=== PATIENT | female | born 1975 | race Caucasian/White ===

== ENCOUNTER 2019-12-27 14:38 | Emergency (ER) | payer OTHER ==
[~2019-12-27] VITALS: Ht 165.1 cm; Wt 90.7 kg
[~2019-12-27 14:38] MED LIST: NORCO 5-325 TA1 EACH PO; PREVACID15 MG
[2019-12-27] MEDS ORDERED: WELLBUTRIN SR150 MG PO (14:59)
[2019-12-27] MEDS ORDERED: SUPER THERAVIT1 EACH PO (15:00)
[2019-12-27 15:26] LABS: ABSOLUTE BASOPHILS 0.1 thou/uL (0.0-0.2); ABSOLUTE EOSINOPHILS 0.2 thou/uL (0.0-0.7); ABSOLUTE MONOCYTES 0.7 thou/uL (0.0-1.2); ABSOLUTE NEUTROPHILS 4.9 thou/uL (1.6-8.1); BASOPHILS 1.1 %; EOSINOPHILS 2.7 %; HEMATOCRIT 44.5 % (37.0-47.0); HEMOGLOBIN 15.2 gm/dL (12.0-15.0); LYMPHOCYTES 25.6 %; MCH 28.9 pg (26.0-34.0); MCHC 34.1 g/dL (28.0-37.0); MCV 84.8 fL (80.0-100.0); MONOCYTES 8.8 %; MPV 8.2 fl. (7.2-11.1); NUCLEATED RBCS 0 /100WBC; PLATELET COUNT* 307 thou/uL (150-400); POLYS 61.8 %; RBC 5.24 mil/uL (4.20-5.00); RDW-CV 13.3 % (10.5-14.5); WBC 7.9 thou/uL (4.0-11.0)
[2019-12-27 15:34] LABS: CALCIUM 8.5 mg/dL (8.5-10.1); CREATININE 0.7 mg/dL (0.6-1.3); POTASSIUM 4.2 mmol/L (3.5-5.1)
[2019-12-27] MEDS ORDERED: PREDNISONE 20 M20 MG PO (16:11)
[2019-12-27] MEDS ORDERED: FAMOTIDINE 20 M20 MG PO (16:11)
[2019-12-27] MEDS ORDERED: HYDROXYZINE HCL25 M2 PO (16:11)
[2019-12-27] MEDS ORDERED: HYDROCORTISONE3011 TOP (16:11)
[2019-12-27 16:36] VITALS: BP 144/79
== END 2019-12-27 16:38 | disposition home or self-care (01) ==
LOC: M.ERS 14:38
PROVIDERS: Nurse Practitioner Family
DX: L50.9 Urticaria, unspecified (principal); T78.1XXA Other adverse food reactions, not elsewhere classified, initial encounter; X58.XXXA Exposure to other specified factors, initial encounter

== ENCOUNTER → 2019-12-30 | Outpatient (CLI) | payer OTHER ==
[~2019-12-30] MED LIST changes: +FAMOTIDINE 20 M20 MG PO; +HYDROCORTISONE3011 TOP; +HYDROXYZINE HCL25 M2 PO; +PREDNISONE 20 M20 MG PO; +SUPER THERAVIT1 EACH PO; +WELLBUTRIN SR150 MG PO
[2019-12-30 12:25] LABS: HEMATOCRIT 42.9 % (37.0-47.0); HEMOGLOBIN 14.7 gm/dL (12.0-15.0); MCH 29.1 pg (26.0-34.0); MCHC 34.3 g/dL (28.0-37.0); MCV 84.8 fL (80.0-100.0); RBC 5.06 mil/uL (4.20-5.00); RDW-CV 13.4 % (10.5-14.5); WBC 9.1 thou/uL (4.0-11.0)
[2019-12-30 12:42] LABS: ALBUMIN 3.8 g/dL (3.4-5.0); CALCIUM 8.7 mg/dL (8.5-10.1); CREATININE 0.8 mg/dL (0.6-1.3); POTASSIUM 4.2 mmol/L (3.5-5.1); TOTAL BILIRUBIN 0.8 mg/dL (<0.1-1.0); TOTAL PROTEIN 7.2 g/dL (6.4-8.2)
== END ==
LOC: M.LAB 12:02
DX: R21 Rash and other nonspecific skin eruption (principal)

== ENCOUNTER → 2020-01-12 | Outpatient (CLI) | payer OTHER | LOC: M.LAB 13:49 | DX: R21 Rash and other nonspecific skin eruption (principal) ==

== ENCOUNTER 2020-08-09 22:04 | Emergency (ER) | payer OTHER ==
[~2020-08-09] VITALS: Ht 167.6 cm; Wt 93.0 kg
[2020-08-09 22:42] LABS: INFLUENZA A ANTIGEN Negative (Negative); INFLUENZA B ANTIGEN Negative (Negative)
[2020-08-09 23:25] VITALS: BP 172/92
== END 2020-08-09 23:27 | disposition home or self-care (01) ==
LOC: M.ERS 22:04
PROVIDERS: Personal Emergency Response Attendant
DX: U07.1 COVID-19 (principal)